=== PATIENT | male | born 1965 | race Caucasian/White ===

== ENCOUNTER → 2017-08-02 | Outpatient (CLI) | payer MEDICARE ==
[~2017-08-02] MED LIST: GADOBUTROL 10 MMOL/10 ML VIAL IV ONE
[2017-08-02 14:34] LABS: BLOOD UREA NITROGEN 12 mg/dL (7-26); BUN/CREATININE RATIO 14 (6-25); CREATININE, SERUM 0.88 mg/dL (0.72-1.25); EST GLOMERULAR FILTRATION RATE > 60 ML/MIN (60-)
--- NOTE | 2017-08-02 16:18 | Diagnostic Imaging Report ---
EXAM: MRI MRCP O DATE: 08/02/2017 2:00 PM INDICATION: Pancreas lesion. COMPARISON: CT dated 03/01/2011 TECHNIQUE: Multiplanar/multi sequential MR images of the abdomen were obtained before and after administration of 10 cc of Gadavist. MRCP series included. FINDINGS: Mild drop in hepatic signal on out of phase images, representing mild steatosis. 0.7 cm right hepatic lobe T2 hyperintensity (series 5, image 11) without evidence of enhancement, representing a small cyst. Gallbladder is absent. Spleen is unremarkable. There is no pancreatic lesion. No pancreatic ductal dilatation. Kidneys enhance symmetrically. No hydronephrosis. 1.2 cm left inferior pole cyst. Visualized bowel loops are unremarkable. No evidence of bowel obstruction. 1.2 cm nonspecific aortocaval lymph node (series 9, image 144). The common bile duct is normal in caliber. There are no filling defects or strictures. No intrahepatic biliary dilation. IMPRESSION: No pancreatic lesion visualized. Status post cholecystectomy. Common bile duct is within normal limits. Mild hepatic steatosis. Signed by: Dr. Edgard Flanagan MD on 08/02/2017 4:14 PM
== END ==
LOC: MRI 13:30
PROVIDERS: ATTEND Internal Medicine
DX: K86.9 Disease of pancreas, unspecified (principal)
CPT/HCPCS: 36415; 74183; 82565; 84520; A9585

== ENCOUNTER 2018-04-01 22:33 | Inpatient (IN) | payer MEDICARE ==
[~2018-04-01] VITALS: Ht 177.8 cm; Wt 118.2 kg
[2018-04-01] MEDS ORDERED: PANTOPRAZOLE 40 MG 10ML VIAL IV STA (22:44)
[2018-04-01] MEDS ORDERED: MULTIVITAMINS- 12 INJECTION 10 ML, FOLIC ACID MDV 5 MG, THIAMINE HCL INJ 100 MG in SODI... IV ONE (22:45)
[2018-04-01 23:40] LABS: BASOPHILS % 0.5 % (0.0-1.0); EOSINOPHILS # (AUTO) 0.1 (0.0-0.4); EOSINOPHILS % 0.8 % (0.0-6.0); HEMATOCRIT 43.1 % (38.2-49.6); HEMOGLOBIN 14.5 g/dL (14.0-18.0); LYMPHOCYTES % 26.9 % (18.0-39.1); MEAN CORPUSCULAR HEMOGLOBIN 30.1 pg (28-32); MEAN CORPUSCULAR HGB CONC 33.6 g/dL (31-35); MEAN CORPUSCULAR VOLUME 89.6 fL (81-99); MONOCYTES % 13.3 % (4.4-11.3); NEUTROPHILS # (AUTO) 4.4 (2.1-6.9); NEUTROPHILS % 58.1 % (38.7-80.0); PLATELET COUNT 185 x10e3/uL (140-360); RED BLOOD COUNT 4.81 x10e6/uL (4.3-5.7); RED CELL DISTRIBUTION WIDTH 13.6 % (11.7-14.4)
[2018-04-01 23:50] LABS: INR 1.04; PROTHROMBIN TIME 12.8 seconds (11.9-14.5)
[2018-04-01 23:51] LABS: PARTIAL THROMBOPLASTIN TIME 26.4 seconds (23.8-35.5)
[2018-04-01 23:57] LABS: ACETAMINOPHEN < 3 ug/mL (10-30); SALICYLATE < 5.0 mg/dL (0-30)
[2018-04-02] VITALS (8 sets, daily range): BP systolic 100–154; BP diastolic 73–85
[2018-04-02 00:01] LABS: ALANINE AMINOTRANSFERASE 103 IU/L (0-55); ALBUMIN 4.3 g/dL (3.5-5.0); ALBUMIN/GLOBULIN RATIO 1.1 (0.8-2.0); ANION GAP 19.3 mmol/L (8-16); BLOOD UREA NITROGEN 6 mg/dL (7-26); BUN/CREATININE RATIO 7 (6-25); CARBON DIOXIDE 22 mmol/L (22-29); CHLORIDE 95 mmol/L (98-107); CREATINE KINASE 113 IU/L (30-200); CREATININE, SERUM 0.85 mg/dL (0.72-1.25); EST GLOMERULAR FILTRATION RATE > 60 ML/MIN (60-); GLUCOSE 107 mg/dL (74-118); MAGNESIUM 2.4 MG/DL (1.3-2.1); POTASSIUM 4.3 mmol/L (3.5-5.1); SODIUM 132 mmol/L (136-145)
[2018-04-02 00:10] LABS: ALKALINE PHOSPHATASE 107 IU/L (40-150)
--- NOTE | 2018-04-02 00:13 | Diagnostic Imaging Report ---
RIBS UNILAT W/CXR Comparison: None Clinical history: Fall, left rib pain Findings: Slight cortical irregularity at the left anterolateral 8th rib. Otherwise no acute displaced rib fracture. Normal cardiomediastinal silhouette. Low lung volumes without consolidation or edema. No effusion or pneumothorax. Impression: Age-indeterminate left anterolateral 8th rib deformity; correlate with site of pain. Signed by: Dr Delfina Talavera MD on 04/02/2018 12:10 AM
[2018-04-02] MEDS ORDERED: LORAZEPAM INJ 2 MG/ML VIAL IV ONE (00:15)
[2018-04-02 00:33] LABS: THYROID STIMULATING HORMONE 1.482 uIU/mL (0.350-4.940)
[2018-04-02] MEDS: SODIUM CHLORIDE 0.9% 1000ML 1,000 ML IV SCH ×2 (01:15→11:15)
[2018-04-02] MEDS ORDERED: DEXTROSE 50% SYRINGE 50 ML IV PRN (01:15)
[2018-04-02] MEDS ORDERED: ONDANSETRON HCL INJ 2 MG/ML VIAL IV PRN (01:15)
[2018-04-02] MEDS ORDERED: LORAZEPAM INJ 2 MG/ML VIAL IV PRN (01:15)
[2018-04-02] MEDS ORDERED: CHLORDIAZEPOXIDE HCL 25 MG CAP PO SCH (01:15)
[2018-04-02 01:39] LABS: AMPHETAMINES SCREEN,URINE NEGATIVE (NEGATIVE); PHENCYCLIDINE SCREEN,URINE NEGATIVE (NEGATIVE)
[2018-04-02 01:40] LABS: BENZODIAZEPINES SCREEN,URINE POSITIVE (NEGATIVE); CLARITY,URINE CLEAR (CLEAR); COLOR,URINE YELLOW (YELLOW); LEUKOCYTE ESTERASE ,URINE NEGATIVE (NEGATIVE); NITRITE,URINE NEGATIVE (NEGATIVE); PROTEIN,URINE DIPSTICK NEGATIVE (NEGATIVE)
[2018-04-02 01:41] LABS: BILIRUBIN,URINE NEGATIVE (NEGATIVE); KETONES,URINE NEGATIVE (NEGATIVE); URINE UROBILINOGEN 0.2 mg/dL (0.2 - 1)
[2018-04-02] MEDS ORDERED: TOPIRAMATE50 MG PO (01:43)
[2018-04-02] MEDS ORDERED: METFORMIN HCL500 MG PO (01:43)
[2018-04-02] MEDS ORDERED: TRAZODONE HCL50 MG PO (01:43)
[2018-04-02] MEDS ORDERED: CLONAZEPAM0.5 MG PO (01:43)
[2018-04-02] MEDS ORDERED: CYMBALTA60 MG PO (01:43)
[2018-04-02] MEDS ORDERED: LISINOPRIL10 MG PO (01:43)
[2018-04-02 01:45] LABS: BACTERIA,URINE RARE /HPF; EPITHELIAL CELLS,URINE RARE /LPF
[2018-04-02] MEDS: HYDROCODONE/APAP 5MG-325MG TAB PO PRN ×6 (04:10→20:52)
[2018-04-02] MEDS: INSULIN REGULAR, HUMAN 100 UNIT/1 ML 3ML VIAL SQ SCH ×4 (07:30→20:43)
[2018-04-02] MEDS ORDERED: TRAZODONE HCL 50 MG TAB PO PRN (07:45)
[2018-04-02 08:32] LABS: CHOL/HDL RATIO 2.5 (3.9-4.7)
--- NOTE | 2018-04-02 08:43 | History and Physical ---
PRIMARY CARE PHYSICIAN: Dr. Hernandez CHIEF COMPLAINT: Alcohol intoxication requiring detox. HISTORY OF PRESENT ILLNESS: This is a 52-year-old man with a history of alcoholism, who now comes in with about 24 beers a day. Sent to the hospital by his primary care doctor for attempts at detox. He denies any history of delirium tremens or withdrawals. PAST MEDICAL HISTORY: Diabetes mellitus, type 2, hypertension, TIA, alcoholism, skin cancer/basal cell cancer, status post resection, left rib fracture about 1 week ago. PAST SURGICAL HISTORY: Knee surgery, back surgery, cholecystectomy, right rotator cuff repair, skin cancer related. ALLERGIES: PER ELECTRONIC MEDICAL RECORD. FAMILY HISTORY/SOCIAL HISTORY: Patient is single. Has 2 children. No cigarettes or illicits. He drinks about 24 beers a day. MEDICATIONS: Per electronic medical record. REVIEW OF SYSTEMS: Denies any dizziness, chest pain, shortness of breath, fever, chills, sweats, nausea, vomiting, diarrhea, leg pain, back pain. PHYSICAL EXAMINATION VITAL SIGNS: Reviewed. GENERAL: A tired-appearing man resting in bed. HEENT: Anicteric. Pupils respond to light. No oral lesions. CARDIOVASCULAR: Normal S1 and S2. LUNGS: Moderate breath sounds. ABDOMEN: Soft, nontender and nondistended. EXTREMITIES: No edema or calf tenderness. NEUROLOGICAL: Alert and oriented times 3. Moving all extremities. SKIN: Dry. PSYCHIATRIC: Flat affect. MUSCULOSKELETAL: Left-sided chest wall mildly tender. LABS: Reviewed. MEDICATIONS: Reviewed. ASSESSMENT: This is a 52-year-old man with: 1. Alcohol intoxication/alcoholism. 2. Overweight state: Body mass index is 28.7. 3. Left rib fracture. 4. Hypertension. 5. History of transient ischemic attack. 6. Acute transaminitis with elevated liver function tests. PLAN 1. Will start chlordiazepoxide. 2. Continue IV fluids. 3. Folic acid and thiamine use. 4. Blood pressure control with lisinopril. 5. Social work for resources and counseling. 6. Obtain hepatitis panel. His ALT is good as is his AST. 7. Monitor closely for signs of withdrawal. 8. Use SCD for DVT prophylaxis and Pepcid for GI prophylaxis. Job#: [id number] [place]
[2018-04-02] MEDS: CLONAZEPAM 0.5 MG TAB PO SCH ×3 (09:00→21:43)
[2018-04-02] MEDS ORDERED: THIAMINE HCL 100 MG TAB PO SCH (09:00)
[2018-04-02] MEDS ORDERED: NON-FORMULARY MEDICATION (Duloxetine Hcl (Cymbalta) 60 MG) PO SCH (09:00)
[2018-04-02] MEDS: DULOXETINE HCL 30 MG DELAYED RELEASE PO SCH ×2 (09:00→17:00)
[2018-04-02] MEDS: THIAMINE HCL 100 MG TAB PO SCH (09:00)
[2018-04-02] MEDS: TOPIRAMATE 25 MG TAB PO SCH ×2 (09:00→17:00)
[2018-04-02] MEDS ORDERED: NON-FORMULARY MEDICATION (Topiramate 50 MG) PO SCH (09:00)
[2018-04-02] MEDS: FOLIC ACID 1 MG TAB PO SCH (09:00)
[2018-04-02] MEDS: MULTIVITAMINS/MINERALS TAB PO SCH (09:00)
[2018-04-02] MEDS: CHLORDIAZEPOXIDE HCL 25 MG CAP PO SCH ×3 (10:00→22:00)
[2018-04-02] MEDS: LISINOPRIL 10 MG TAB PO SCH ×2 (11:30→17:00)
[2018-04-02] MEDS: FAMOTIDINE 20 MG TAB PO SCH (16:30)
[2018-04-03] VITALS (7 sets, daily range): BP systolic 103–126; BP diastolic 60–74
[2018-04-03] MEDS: HYDROCODONE/APAP 5MG-325MG TAB PO PRN ×4 (01:09→15:34)
[2018-04-03] MEDS: SODIUM CHLORIDE 0.9% 1000ML 1,000 ML IV SCH ×3 (01:37→20:10)
[2018-04-03 05:52] LABS: BASOPHILS # (AUTO) 0.1 (0.0-0.1); EOSINOPHILS # (AUTO) 0.2 (0.0-0.4); EOSINOPHILS % 2.8 % (0.0-6.0); HEMATOCRIT 36.1 % (38.2-49.6); LYMPHOCYTES % 34.9 % (18.0-39.1); MEAN CORPUSCULAR HEMOGLOBIN 30.2 pg (28-32); MEAN CORPUSCULAR HGB CONC 32.4 g/dL (31-35); MONOCYTES % 16.4 % (4.4-11.3); NEUTROPHILS # (AUTO) 2.6 (2.1-6.9); NEUTROPHILS % 44.7 % (38.7-80.0); PLATELET COUNT 139 x10e3/uL (140-360); RED BLOOD COUNT 3.88 x10e6/uL (4.3-5.7); RED CELL DISTRIBUTION WIDTH 14.5 % (11.7-14.4)
[2018-04-03] MEDS: CHLORDIAZEPOXIDE HCL 25 MG CAP PO SCH ×4 (06:05→23:10)
[2018-04-03 06:06] LABS: HEMOGLOBIN 11.7 g/dL (14.0-18.0)
[2018-04-03 06:18] LABS: ALANINE AMINOTRANSFERASE 72 IU/L (0-55); ALBUMIN/GLOBULIN RATIO 1.2 (0.8-2.0); ALKALINE PHOSPHATASE 81 IU/L (40-150); ANION GAP 10.9 mmol/L (8-16); BLOOD UREA NITROGEN 9 mg/dL (7-26); BUN/CREATININE RATIO 11 (6-25); CALCIUM 8.5 mg/dL (8.4-10.2); CARBON DIOXIDE 25 mmol/L (22-29); CHLORIDE 108 mmol/L (98-107); CREATININE, SERUM 0.82 mg/dL (0.72-1.25); EST GLOMERULAR FILTRATION RATE > 60 ML/MIN (60-); GLUCOSE 103 mg/dL (74-118); MAGNESIUM 1.9 MG/DL (1.3-2.1); POTASSIUM 3.9 mmol/L (3.5-5.1); SODIUM 140 mmol/L (136-145)
[2018-04-03] MEDS: INSULIN REGULAR, HUMAN 100 UNIT/1 ML 3ML VIAL SQ SCH ×4 (07:30→20:27)
--- NOTE | 2018-04-03 08:07 | Progress Note ---
DATE: April 03, 2018 TIME: 7:45 a.m. OVERNIGHT: Some visual hallucinations. REVIEW OF SYSTEMS: Denies any dizziness or chest pain. The patient is also agitated. PHYSICAL EXAMINATION VITAL SIGNS: Reviewed. GENERAL: A tired-appearing man resting in bed. HEENT: Anicteric. CARDIOVASCULAR: Normal S1 and S2. LUNGS: Moderate breath sounds. ABDOMEN: Soft, nontender and nondistended. EXTREMITIES: No edema or calf tenderness. NEUROLOGICAL: Alert and oriented times 3. Moving all extremities. Mild tremors holding his arms out. MUSCULOSKELETAL: He has left-sided chest wall discomfort. SKIN: Dry. PSYCHIATRIC: Flat affect. LABS: Reviewed. MEDICATIONS: Reviewed. ASSESSMENT: A 52-year-old man with: 1. Alcohol intoxication/alcoholism. 2. Overweight state: Body mass index 28.7. 3. Left rib fracture. 4. Hypertension. 5. History of transient ischemic attack. 6. Acute transaminitis with elevated liver function tests. 7. Visual hallucinations. 8. Agitation. 9. Anxiety. PLAN 1. Add Seroquel. 2. Add Ambien. 3. Add Tramadol for rib pain. 4. Continue chlordiazepoxide. 5. Increase IV fluids to 75. 6. Continue folic acid, thiamine. 7. Follow up hepatitis panel. Job#: [id number] JUAN CARLOS
--- NOTE | 2018-04-03 08:08 | Progress Note ---
DATE: April 03, 2018 ADDENDUM REVIEW OF SYSTEMS: Denies any dizziness, chest pain, shortness of breath, fever, chills, sweats, nausea, vomiting, diarrhea, back pain, headache. Job#: [id number] [place]
[2018-04-03] MEDS: TOPIRAMATE 25 MG TAB PO SCH ×2 (09:00→17:00)
[2018-04-03] MEDS: MULTIVITAMINS/MINERALS TAB PO SCH (09:00)
[2018-04-03] MEDS: FAMOTIDINE 20 MG TAB PO SCH ×2 (09:00→17:10)
[2018-04-03] MEDS: LISINOPRIL 10 MG TAB PO SCH ×2 (09:00→17:10)
[2018-04-03] MEDS: THIAMINE HCL 100 MG TAB PO SCH (09:00)
[2018-04-03] MEDS: FOLIC ACID 1 MG TAB PO SCH (09:00)
[2018-04-03] MEDS: CLONAZEPAM 0.5 MG TAB PO SCH ×3 (09:00→22:20)
[2018-04-03] MEDS: DULOXETINE HCL 30 MG DELAYED RELEASE PO SCH ×2 (09:00→17:10)
[2018-04-03] MEDS: QUETIAPINE FUMARATE 25 MG TAB PO SCH ×2 (11:35→21:00)
[2018-04-03] MEDS ORDERED: ZOLPIDEM TARTRATE 5 MG TAB PO SCH (21:00)
[2018-04-04] VITALS (8 sets, daily range): BP systolic 112–153; BP diastolic 69–90
[2018-04-04] MEDS: TRAMADOL HCL 50 MG TAB PO PRN (05:11)
[2018-04-04] MEDS: CHLORDIAZEPOXIDE HCL 25 MG CAP PO SCH ×3 (05:11→22:09)
[2018-04-04] MEDS ORDERED: CHLORDIAZEPOXIDE HCL 25 MG CAP PO SCH (06:00)
[2018-04-04] MEDS: INSULIN REGULAR, HUMAN 100 UNIT/1 ML 3ML VIAL SQ SCH ×4 (07:30→21:00)
[2018-04-04] MEDS: FOLIC ACID 1 MG TAB PO SCH (08:34)
[2018-04-04] MEDS: TOPIRAMATE 25 MG TAB PO SCH ×2 (08:34→17:30)
[2018-04-04] MEDS: LISINOPRIL 10 MG TAB PO SCH ×2 (08:34→17:30)
[2018-04-04] MEDS: CLONAZEPAM 0.5 MG TAB PO SCH ×2 (08:34→21:10)
[2018-04-04] MEDS: MULTIVITAMINS/MINERALS TAB PO SCH (08:34)
[2018-04-04] MEDS: DULOXETINE HCL 30 MG DELAYED RELEASE PO SCH ×2 (08:34→17:30)
[2018-04-04] MEDS: THIAMINE HCL 100 MG TAB PO SCH (08:34)
[2018-04-04] MEDS: FAMOTIDINE 20 MG TAB PO SCH ×2 (08:34→17:30)
[2018-04-04] MEDS: HYDROCODONE/APAP 5MG-325MG TAB PO PRN ×2 (08:35→14:19)
[2018-04-04] MEDS: SODIUM CHLORIDE 0.9% 1000ML 1,000 ML IV SCH (11:19)
[2018-04-04] MEDS: DOCUSATE SODIUM 100 MG CAP PO SCH ×2 (11:50→17:30)
[2018-04-04] MEDS ORDERED: DOCUSATE SODIUM 100 MG CAP PO SCH (17:00)
[2018-04-04] MEDS: SENNOSIDES 8.6 MG TAB PO SCH (17:30)
[2018-04-04] MEDS ORDERED: ZOLPIDEM TARTRATE 5 MG TAB PO PRN (21:00)
--- NOTE | 2018-04-04 21:09 | Progress Note ---
DATE: April 04, 2018 TIME: 6:50 a.m. SUBJECTIVE: Overnight, feeling a little better. Seroquel may have been too strong. REVIEW OF SYSTEMS: Denies any dizziness, chest pain, shortness of breath, fever, chills, sweats, nausea, vomiting, diarrhea. OBJECTIVE VITAL SIGNS: Reviewed. GENERAL: Tired-appearing man, resting in bed. HEENT: Anicteric. CARDIOVASCULAR: Normal S1 and S2. LUNGS: Normal breath sounds. ABDOMEN: Soft, nontender, nondistended. EXTREMITIES: No edema or calf tenderness. NEUROLOGICAL: Alert and oriented times 3. Moves all extremities. SKIN: Dry. PSYCHIATRIC: Normal affect. LABS: Reviewed. MEDICATIONS: Reviewed. ASSESSMENT: This is a 52-year-old man with, 1. Alcohol intoxication/alcoholism. 2. Alcohol withdrawal. 3. Overweight state, body mass index 28.7. 4. Left rib fracture. 5. Hypertension. 6. History of transient ischemic attack. 7. Acute transaminitis with elevated liver function tests. 8. Visual hallucination. 9. Agitation. 10. Anxiety. PLAN 1. Reduce Seroquel. 2. Stop Ambien. 3. Continue tramadol for pain. 4. Continue chlordiazepoxide, but reduce the dose. 5. Continue thiamine and folic acid. 6. Follow up hepatitis panel. 7. Continue care as described above. Job#: [id number] SERAFIN
[2018-04-04] MEDS: QUETIAPINE FUMARATE 25 MG TAB PO SCH (21:11)
[2018-04-05] VITALS (8 sets, daily range): BP systolic 137–172; BP diastolic 81–101
[2018-04-05] MEDS: SODIUM CHLORIDE 0.9% 1000ML 1,000 ML IV SCH ×2 (02:20→18:31)
[2018-04-05] MEDS: CHLORDIAZEPOXIDE HCL 25 MG CAP PO SCH ×3 (06:02→21:43)
[2018-04-05] MEDS: INSULIN REGULAR, HUMAN 100 UNIT/1 ML 3ML VIAL SQ SCH ×4 (07:30→19:49)
[2018-04-05] MEDS: DOCUSATE SODIUM 100 MG CAP PO SCH ×2 (08:07→16:54)
[2018-04-05] MEDS: DULOXETINE HCL 30 MG DELAYED RELEASE PO SCH ×2 (08:07→16:55)
[2018-04-05] MEDS: FOLIC ACID 1 MG TAB PO SCH (08:07)
[2018-04-05] MEDS: LISINOPRIL 10 MG TAB PO SCH ×2 (08:07→16:55)
[2018-04-05] MEDS: MULTIVITAMINS/MINERALS TAB PO SCH (08:07)
[2018-04-05] MEDS: FAMOTIDINE 20 MG TAB PO SCH ×2 (08:07→16:54)
[2018-04-05] MEDS: CLONAZEPAM 0.5 MG TAB PO SCH ×2 (08:07→21:43)
[2018-04-05] MEDS: TOPIRAMATE 25 MG TAB PO SCH ×2 (08:08→16:55)
[2018-04-05] MEDS: HYDROCODONE/APAP 5MG-325MG TAB PO PRN ×4 (08:08→23:47)
[2018-04-05] MEDS: SENNOSIDES 8.6 MG TAB PO SCH ×2 (08:08→16:55)
[2018-04-05] MEDS: THIAMINE HCL 100 MG TAB PO SCH (08:08)
[2018-04-05] MEDS: ZOLPIDEM TARTRATE 5 MG TAB PO SCH (20:30)
[2018-04-05] MEDS: LABETALOL HCL 5 MG/ML 20ML VIAL IV PRN (21:20)
[2018-04-05] MEDS: QUETIAPINE FUMARATE 25 MG TAB PO SCH (21:43)
[2018-04-06] VITALS (8 sets, daily range): BP systolic 112–160; BP diastolic 61–96
[2018-04-06] MEDS: LABETALOL HCL 5 MG/ML 20ML VIAL IV PRN
[2018-04-06] MEDS: HYDROCODONE/APAP 5MG-325MG TAB PO PRN ×4 (04:26→19:30)
[2018-04-06] MEDS: CHLORDIAZEPOXIDE HCL 25 MG CAP PO SCH ×3 (06:00→21:08)
[2018-04-06] MEDS: INSULIN REGULAR, HUMAN 100 UNIT/1 ML 3ML VIAL SQ SCH ×4 (07:30→21:00)
[2018-04-06] MEDS: FOLIC ACID 1 MG TAB PO SCH (08:58)
[2018-04-06] MEDS: DOCUSATE SODIUM 100 MG CAP PO SCH ×2 (08:58→16:59)
[2018-04-06] MEDS: CLONAZEPAM 0.5 MG TAB PO SCH ×2 (08:58→21:08)
[2018-04-06] MEDS: FAMOTIDINE 20 MG TAB PO SCH ×2 (08:58→16:59)
[2018-04-06] MEDS: MULTIVITAMINS/MINERALS TAB PO SCH (08:58)
[2018-04-06] MEDS: SENNOSIDES 8.6 MG TAB PO SCH ×2 (08:58→17:00)
[2018-04-06] MEDS: TOPIRAMATE 25 MG TAB PO SCH ×2 (08:58→17:00)
[2018-04-06] MEDS: LISINOPRIL 10 MG TAB PO SCH ×2 (08:58→17:00)
[2018-04-06] MEDS: DULOXETINE HCL 30 MG DELAYED RELEASE PO SCH ×2 (08:58→16:59)
[2018-04-06] MEDS: SODIUM CHLORIDE 0.9% 1000ML 1,000 ML IV SCH (11:26)
[2018-04-06] MEDS: THIAMINE HCL 100 MG TAB PO SCH (11:26)
--- NOTE | 2018-04-06 13:19 | Progress Note ---
DATE: Friday, April 06, 2018 TIME: 12 noon INTERNAL MEDICINE PROGRESS NOTE SUBJECTIVE: Overnight, no acute events. Hypertensive episode. Tx with p.r.n. labetalol. REVIEW OF SYSTEMS: Patient denies chest pain, shortness of breath, or dizziness. Patient denies fever, chills, nausea, vomiting, night sweats, diarrhea, or leg pain. Patient reports fatigue, anxiety, and intermittent tremors. OBJECTIVE VITAL SIGNS: T 97.2, P 53, R 20, BP 139/84, SpO2 on room air at 100%. Max systolic/diastolic BP 172/101. GENERAL APPEARANCE: This is an anxious-appearing, middle-aged man, resting supine in bed. HEENT: Normocephalic. No sinus tenderness. Nares are patent. Oral mucosa moist and intact. No lymphadenopathy. Trachea is midline. No JVD. CV: S1 and S2 with regular rate. LUNGS: Bilateral breath sounds CTA with moderate excursion. Left chest wall with focal tenderness. ABDOMEN: Soft, nontender, nondistended. EXTREMITIES: No edema or calf tenderness. NEUROLOGICAL: A and O times 3. Moves all extremities. Gross motor function intact. Sensation intact. Serial 7's intact. SKIN: Dry. PSYCHIATRIC: Flat affect. LABS: Reviewed. MEDICATIONS 1. Colace 100 mg p.o. b.i.d. 2. Senokot 17.2 mg p.o. b.i.d. 3. Klonopin 0.5 q.12 h. p.o. 4. Pepcid 20 mg b.i.d. a.c. by mouth. 5. Topamax 50 mg p.o. b.i.d. 6. Duloxetine 60 mg p.o. b.i.d. 7. Folic acid 1 mg p.o. daily. 8. Lisinopril 10 mg p.o. b.i.d. 9. MVI p.o. daily. 10. P.R.N. Wirt 5. 11. Librium 25 mg p.o. q.8 h. 12. P.R.N. labetalol. 13. Nightly Seroquel 12.5. 14. P.R.N. Ambien. 15. IV normal saline at 75 mL an hour. 16. Thiamine 100 mg p.o. daily. 17. Ultram 50 q.6 h. p.r.n. 18. Sliding-scale insulin. 19. P.R.N. D50. 20. P.R.N. Ativan. 21. P.R.N. Zofran. ASSESSMENT AND PLAN: This is a 52-year-old man with: 1. Alcohol intoxication/alcoholism in withdrawal state. Continue chlordiazepoxide at current dose. Patient continues with mild tremors and anxiety. 2. Overweight state, body mass index 28.7. Would benefit from calorie reduction as an outpatient. 3. Left rib fracture. P.R.N. Wirt. 4. Hypertension. Managed. New order for p.r.n. labetalol. 5. History of transient ischemic attack. 6. Acute transaminitis with elevated liver function tests. Monitor. 7. Visual hallucinations, improving per patient. Continue intermittently when not distracted. 8. Agitation. Ativan. 9. Anxiety. Continue benzodiazepine. 10. Prophylaxis: Pepcid and ambulation. 11. Disposition: Continue p.r.n. narcotic for pain management. Librium and benzodiazepine for withdrawal symptoms. Discontinue Ambien. Thiamine and folic acid with nutritional support. Hepatitis panel negative. Continue care as above. Dictated by Johnny Carnes NP. Job#: [id number]
[2018-04-06] MEDS: QUETIAPINE FUMARATE 25 MG TAB PO SCH (21:08)
[2018-04-06] MEDS: ZOLPIDEM TARTRATE 5 MG TAB PO SCH (21:08)
[2018-04-07] VITALS (8 sets, daily range): BP systolic 94–181; BP diastolic 51–107
[2018-04-07] MEDS: LABETALOL HCL 5 MG/ML 20ML VIAL IV PRN (00:10)
[2018-04-07] MEDS: SODIUM CHLORIDE 0.9% 1000ML 1,000 ML IV SCH (04:00)
[2018-04-07] MEDS: HYDROCODONE/APAP 5MG-325MG TAB PO PRN (04:39)
[2018-04-07] MEDS: CHLORDIAZEPOXIDE HCL 25 MG CAP PO SCH ×3 (05:47→22:30)
[2018-04-07 06:45] LABS: ALANINE AMINOTRANSFERASE 39 IU/L (0-55); ALBUMIN 2.8 g/dL (3.5-5.0); ALBUMIN/GLOBULIN RATIO 1.1 (0.8-2.0); ALKALINE PHOSPHATASE 68 IU/L (40-150); ANION GAP 8.6 mmol/L (8-16); BLOOD UREA NITROGEN 13 mg/dL (7-26); BUN/CREATININE RATIO 15 (6-25); CALCIUM 8.8 mg/dL (8.4-10.2); CARBON DIOXIDE 26 mmol/L (22-29); CHLORIDE 110 mmol/L (98-107); CREATININE, SERUM 0.85 mg/dL (0.72-1.25); EST GLOMERULAR FILTRATION RATE > 60 ML/MIN (60-); GLUCOSE 106 mg/dL (74-118); POTASSIUM 3.6 mmol/L (3.5-5.1); SODIUM 141 mmol/L (136-145)
[2018-04-07] MEDS ORDERED: SENOKOT8.6 MG PO (06:53)
[2018-04-07] MEDS ORDERED: Multivitamins/Minerals PO (06:53)
[2018-04-07] MEDS ORDERED: CHLORDIAZEPOXID25 MG PO (06:53)
[2018-04-07] MEDS ORDERED: COLACE100 M1 PO (06:53)
[2018-04-07] MEDS ORDERED: CLONAZEPAM0.5 MG PO (06:53)
[2018-04-07] MEDS ORDERED: SEROQUEL25 MG PO (06:53)
[2018-04-07] MEDS ORDERED: AMBIEN5 MG PO (06:53)
[2018-04-07] MEDS ORDERED: VITAMIN B-1100 MG PO (06:53)
[2018-04-07] MEDS ORDERED: FOLIC ACID1 MG PO (06:53)
[2018-04-07] MEDS ORDERED: FAMOTIDINE20 MG PO (06:53)
[2018-04-07] MEDS: INSULIN REGULAR, HUMAN 100 UNIT/1 ML 3ML VIAL SQ SCH ×4 (07:30→21:00)
[2018-04-07] MEDS ORDERED: CHLORDIAZEPOXIDE HCL 25 MG CAP PO SCH (09:00)
[2018-04-07] MEDS: DULOXETINE HCL 30 MG DELAYED RELEASE PO SCH ×2 (09:23→17:38)
[2018-04-07] MEDS: LISINOPRIL 10 MG TAB PO SCH ×2 (09:23→17:38)
[2018-04-07] MEDS: MULTIVITAMINS/MINERALS TAB PO SCH (09:23)
[2018-04-07] MEDS: FOLIC ACID 1 MG TAB PO SCH (09:23)
[2018-04-07] MEDS: FAMOTIDINE 20 MG TAB PO SCH ×2 (09:23→17:38)
[2018-04-07] MEDS: DOCUSATE SODIUM 100 MG CAP PO SCH ×2 (09:23→17:38)
[2018-04-07] MEDS: SENNOSIDES 8.6 MG TAB PO SCH ×2 (09:24→17:38)
[2018-04-07] MEDS: TOPIRAMATE 25 MG TAB PO SCH ×2 (09:24→17:38)
[2018-04-07] MEDS: THIAMINE HCL 100 MG TAB PO SCH (09:24)
[2018-04-07] MEDS: TRAMADOL HCL 50 MG TAB PO PRN (17:37)
[2018-04-07] MEDS ORDERED: QUETIAPINE FUMARATE 25 MG TAB PO SCH (21:00)
[2018-04-08 01:49] VITALS: BP 138/60
[2018-04-08] MEDS: TRAMADOL HCL 50 MG TAB PO PRN ×2 (05:33→12:46)
[2018-04-08] MEDS: CHLORDIAZEPOXIDE HCL 25 MG CAP PO SCH ×2 (05:33→12:46)
[2018-04-08 06:29] VITALS: BP 137/80
[2018-04-08] MEDS: INSULIN REGULAR, HUMAN 100 UNIT/1 ML 3ML VIAL SQ SCH ×3 (07:30→16:06)
[2018-04-08] MEDS: DOCUSATE SODIUM 100 MG CAP PO SCH ×2 (08:39→16:06)
[2018-04-08] MEDS: FAMOTIDINE 20 MG TAB PO SCH ×2 (08:39→16:06)
[2018-04-08] MEDS: FOLIC ACID 1 MG TAB PO SCH (08:39)
[2018-04-08] MEDS: DULOXETINE HCL 30 MG DELAYED RELEASE PO SCH ×2 (08:39→16:06)
[2018-04-08] MEDS: MULTIVITAMINS/MINERALS TAB PO SCH (08:39)
[2018-04-08 08:40] VITALS: BP 137/88
[2018-04-08] MEDS: LISINOPRIL 10 MG TAB PO SCH ×2 (08:40→16:06)
[2018-04-08] MEDS: TOPIRAMATE 25 MG TAB PO SCH ×2 (08:40→16:06)
[2018-04-08] MEDS: SENNOSIDES 8.6 MG TAB PO SCH ×2 (08:40→16:06)
[2018-04-08] MEDS: THIAMINE HCL 100 MG TAB PO SCH (08:40)
[2018-04-08 09:24] VITALS: BP 137/88
[2018-04-08 16:11] VITALS: BP 172/92
--- NOTE | 2018-04-08 21:02 | Progress Note ---
DATE: April 07, 2018 TIME: 8:15 a.m. SUBJECTIVE: Overnight, no events. REVIEW OF SYSTEMS: Denies any dizziness, chest pain, shortness of breath, fever, chills, sweats, nausea, vomiting, diarrhea. OBJECTIVE VITAL SIGNS: Reviewed. GENERAL: A tired appearing man, resting in bed. HEENT: Anicteric. CARDIOVASCULAR: Normal S1, S2. LUNGS: Moderate breath sounds. ABDOMEN: Soft, nontender, nondistended. EXTREMITIES: No edema. SKIN: Dry. PSYCHIATRIC: Flat affect. LABS: Reviewed. MEDICATIONS: Reviewed. ASSESSMENT: A 52-year-old woman with, 1. Alcohol intoxication/alcoholism. 2. Alcohol withdrawal. 3. Overweight state. Body mass index 28.7. 4. Left rib fracture. 5. Hypertension. 6. History of transient ischemic attack. 7. Acute transaminitis with elevated liver function test. 8. Visual hallucination. 9. Agitation. 10. Anxiety. PLAN 1. Continue Seroquel. 2. Continue Ambien. 3. Continue tramadol. 4. Discontinue Fontana. 5. Titrate the above medications. 6. Continue Librium. 7. Skilled facility placement. Job#: [id number] SREAFIN
--- NOTE | 2018-04-08 21:05 | Discharge Summary ---
PRINCIPAL DIAGNOSES 1. Alcohol intoxication/alcoholism. 2. Alcohol withdrawal. 3. Overweight state, BMI 28.7. 4. Left rib fracture. 5. Hypertension. 6. History of transient ischemic attack. 7. Acute transaminitis with elevated liver function test. 8. Visual hallucinations due to alcohol withdrawal. 9. Agitation. 10. Anxiety. SECONDARY DIAGNOSIS: Alcoholism. CHIEF COMPLAINT: Alcohol intoxication requiring detoxification. HISTORY OF PRESENT ILLNESS: A 52-year-old man with alcohol intoxication requiring detoxification. Please refer to the H\T\P for further details. HOSPITAL COURSE: The patient had alcoholism, delirium tremens, and the patient had visual hallucinations. Medication was adjusted. He also had pain medication, and these were titrated off. He was subsequently transferred to skilled facility for further care. He also had acute transaminitis with elevated LFTs. He needs to be retested as an outpatient. His hepatitis panel was completely negative. Therefore, his transaminitis was secondary to chronic alcohol use. The patient was discharged to skilled facility. DISCHARGE MEDICATIONS: Per electronic medical records. FOLLOWUP INSTRUCTIONS: Follow up with primary care physician in one week. DISCHARGE LOCATION: Skilled facility. MANDO ESTRELLA MD Job#: [id number]
== END 2018-04-08 18:03 | DRG 897 ==
LOC: ER 22:33 → ERHOLD 04-02 01:11 → MED/SURG3 04-02 01:50
PROVIDERS: ADMIT Internal Medicine; ATTEND Internal Medicine
DX: F10.221 Alcohol dependence with intoxication delirium (principal); S22.32XA Fracture of one rib, left side, initial encounter for closed fracture; R74.0 Nonspecific elevation of levels of transaminase and lactic acid dehydrogenase [LDH]; R44.1 Visual hallucinations; R45.1 Restlessness and agitation; F41.9 Anxiety disorder, unspecified; F10.239 Alcohol dependence with withdrawal, unspecified; Y90.6 Blood alcohol level of 120-199 mg/100 ml; I10 Essential (primary) hypertension; Z86.73 Personal history of transient ischemic attack (TIA), and cerebral infarction without residual deficits; X58.XXXA Exposure to other specified factors, initial encounter; E66.9 Obesity, unspecified; Z68.37 Body mass index [BMI] 37.0-37.9, adult; E11.9 Type 2 diabetes mellitus without complications; Z79.4 Long term (current) use of insulin
CPT/HCPCS: 36415; 71101; 80053; 80061; 80307; 80320; 80329; 81001; 82550; 82553; 82948; 83036; 83735; 84443; 84484; 85025; 85610; 85730; 87086; 96361; 96374; 96375; 99284; J2060; J3411; J7030

== ENCOUNTER 2019-02-06 22:00 | Emergency (ER) | payer MEDICARE ==
[~2019-02-06] VITALS: Ht 177.8 cm; Wt 117.9 kg
[~2019-02-06 22:00] MED LIST changes: +AMBIEN5 MG PO; +CHLORDIAZEPOXID25 MG PO; +CLONAZEPAM0.5 MG PO; +COLACE100 M1 PO; +CYMBALTA60 MG PO; +FAMOTIDINE20 MG PO; +FOLIC ACID1 MG PO; -GADOBUTROL 10 MMOL/10 ML VIAL IV ONE; +LISINOPRIL10 MG PO; +METFORMIN HCL500 MG PO; +Multivitamins/Minerals PO; +SENOKOT8.6 MG PO; +SEROQUEL25 MG PO; +TOPIRAMATE50 MG PO; +TRAZODONE HCL50 MG PO; +VITAMIN B-1100 MG PO
--- OUTSIDE RECORDS SUMMARY | 2019-02-06 22:02 | XMS REPORT | Clinical Summary ---
Author Author [facility] Organization [facility] Address Unknown Phone Unavailable Care Team Providers Care [employer] Clerk Name Role Phone Seferino Hernandez MD PCP Allergies Comments Active Allergy Reactions Severity Noted Date Codeine Hives Medium 02/16/2017 Meperidine Hives 02/16/2017 Morphine Hives Medium 02/16/2017 Medications End Date Status Medication Sig Dispensed Refills Start Date Active topiramate (TOPAMAX) 50 Take 50 mg by 0 MG tablet mouth 2 (two) times a day. Active metFORMIN (GLUCOPHAGE) Take 500 mg 0 500 mg tablet by mouth 2 (two) times a day with meals. Active benazepril (LOTENSIN) 20 Take 20 mg by 0 MG tablet mouth 2 (two) times a day. Active finasteride (PROSCAR) 5 Take 5 mg by 0 mg tablet mouth daily. Active hydroCHLOROthiazide Take 12.5 mg 0 (HYDRODIURIL) 12.5 MG by mouth 2 tablet (two) times a day. Active clonAZEPAM (KlonoPIN) 0.5 Take 0.5 mg 0 MG tablet by mouth 3 (three) times a day as needed for seizures. Active zolpidem (AMBIEN) 5 MG Take 5 mg by 0 tablet mouth nightly as needed for sleep. Active DULoxetine (CYMBALTA) 60 Take 60 mg by 0 MG capsule mouth 2 (two) times a day. Active prazosin (MINIPRESS) 1 MG Take 1 mg by 0 capsule mouth every morning. Active lisinopril TK 1 T PO BID 3 (PRINIVIL,ZESTRIL) 10 mg 8 tablet Active Problems Not on file Immunizations Name Dates Previously Given Next Due Tdap 02/16/2017 Social History Date Tobacco Use Types Packs/Day Years Used Never Smoker Smokeless Tobacco: Chew Current User Tobacco Cessation: Ready to Quit: No; Counseling Given: Yes Alcohol Use Drinks/Week oz/Week Comments Yes 24 Cans of 14.4 beer Sex Assigned at Date Recorded Not on file Industry Job Start Date Occupation Not on file Not on file Not on file Travel End Travel History Travel Start No recent travel history available. Last Filed Vital Signs Not on file Plan of Treatment Health Maintenance Due Date Last Done Comments COLONOSCOPY SCREENING 2014 SHINGLES VACCINES (#1) 2014 INFLUENZA VACCINE 03/12/2019 Results Not on fileafter 02/05/2018 Insurance Type Payer Benefit Subscriber ID Effective Phone Address Plan / Dates Group HMO [employer] C[employer] xxxxxxxx [id number] [employer] resent HMO MCR ADV Advance Directives Patient has advance care planning documents on file. For more information, tom bradford contact: Javid Tuttle [address] [place] [address]
[2019-02-06] MEDS ORDERED: ROBAXIN-750750 MG PO (22:36)
== END 2019-02-06 22:45 | disposition left against medical advice (07) ==
LOC: ER 22:00
DX: Z53.21 Procedure and treatment not carried out due to patient leaving prior to being seen by health care provider (principal); S39.012A Strain of muscle, fascia and tendon of lower back, initial encounter